=== PATIENT | male | born 1970 | race Hispanic/Latino ===

== ENCOUNTER → 2024-10-01 | Outpatient (CLI) | payer OTHER ==
--- NOTE | 2024-10-02 08:33 | HMCIMG ---
EXAM: CT Cardiac calcium scoring. CLINICAL HISTORY: Screening. TECHNIQUE: Thin collimated axial CT cardiac images were obtained. A CT scan is done according to ALARA (As Low As Reasonably Achievable). CONTRAST: None. COMPARISON: CT Cardiac calcium scoring. 04/29/2021. FINDINGS: Calcium Score: VESSEL Number of lesions Volume mm3 Equi. Mass/mg Calcium score LM 0 0 - 0 LAD 3 44.4 - 67.9 LCX 0 0 - 0 RCA 0 0 - 0 Total 3 44.4 - 67.9 IMPRESSION: The total calcium score is 67.9 - an interval increased as compared to the prior CT scan. This corresponds to the 87th percentile. 10 mm hepatic cyst. /[place]
== END | disposition home or self-care (01) ==
LOC: RAH 11:11
PROVIDERS: ATTEND Internal Medicine Cardiovascular Disease
DX: Z13.6 Encounter for screening for cardiovascular disorders (principal); K76.89 Other specified diseases of liver
CPT/HCPCS: 75571